=== PATIENT | female | born 1990 | race American Indian/Alaskan Native ===

== ENCOUNTER 2017-09-28 10:42 | Emergency (ER) | payer MEDICARE ==
[2017-09-28 11:11] LABS: Bacteria,Urine 1+ /HPF (Negative); Bilirubin,Urine NEG (Negative); Blood,Urine NEG (Negative); Color,Urine Yellow (Yellow); Mucus,Urine FEW /HPF; Protein,Urine <15 mg/dL mg/dL (Negative); Urobilinogen,Urine < 2.0 mg/dL (<2.0)
[2017-09-28 11:12] LABS: HCG Qualitative,Urine Negative (Negative)
--- NOTE | 2017-09-28 11:59 | Emergency Department Report ---
ED Abdominal Pain HPI - General Chief Complaint: Abdominal Pain Stated Complaint: PELVIC PAIN Time Seen by Provider: 09/28/17 11:50 Source: patient Mode of arrival: Ambulatory Limitations: No Limitations - History of Present Illness Initial Comments: Patient is a 27-year-old Female who is complaining of suprapubic and low back pain for the past 2-3 days. Patient's had some mild spotting as well. Patient last menstrual period was in June 2017. Patient took a test a week ago which was positive. Patient denies any fevers chills nausea vomiting or diarrhea at this time. - Related Data Previous Rx's Medication Instructions Recorded Last Taken Type Nitrofurantoin Monohyd/M-Cryst 100 mg PO BID #14 capsule 09/28/17 Unknown Rx [Macrobid 100 mg Capsule] Phenazopyridine [Pyridium] 100 mg PO TID 2 Days tab 09/28/17 Unknown Rx Allergies Allergy/AdvReac Type Severity Reaction Status Date / Time acetaminophen [From Percocet] Allergy Hives Verified 09/28/17 10:46 ketorolac [From Toradol] Allergy Hives Verified 09/28/17 10:46 levothyroxine Allergy Hives Verified 09/28/17 10:46 oxycodone [From Percocet] Allergy Hives Verified 09/28/17 10:46 tramadol Allergy Hives Verified 09/28/17 10:46 ED Review of Systems ROS: Stated complaint: PELVIC PAIN Other details as noted in HPI Comment: All other systems reviewed and negative ED Past Medical Hx - Past Medical History Hx Diabetes: Yes Hx GERD: Yes Hx Arthritis: Yes Hx Headaches / Migraines: Yes Additional medical history: sciatica, gastroparesis - Surgical History Hx Cholecystectomy: Yes Additional Surgical History: C/S - Social History Smoking Status: Current Some Day Smoker Substance Use Type: Alcohol - Medications Home Medications: Home Medications Medication Instructions Recorded Confirmed Last Taken Type Nitrofurantoin Monohyd/M-Cryst 100 mg PO BID #14 capsule 09/28/17 Unknown Rx [Macrobid 100 mg Capsule] Phenazopyridine [Pyridium] 100 mg PO TID 2 Days tab 09/28/17 Unknown Rx ED Physical Exam - General Limitations: No Limitations General appearance: alert, in no apparent distress - Head Head exam: Present: atraumatic, normocephalic - Eye Eye exam: Present: normal appearance - ENT ENT exam: Present: mucous membranes moist - Neck Neck exam: Present: normal inspection - Respiratory Respiratory exam: Present: normal lung sounds bilaterally. Absent: respiratory distress - Cardiovascular Cardiovascular Exam: Present: regular rate, normal rhythm. Absent: systolic murmur, diastolic murmur, rubs, gallop - GI/Abdominal GI/Abdominal exam: Present: soft, tenderness, normal bowel sounds. Absent: distended, guarding, rebound - Extremities Exam Extremities exam: Present: normal inspection - Back Exam Back exam: Present: normal inspection - Neurological Exam Neurological exam: Present: alert, oriented X3 - Psychiatric Psychiatric exam: Present: normal affect, normal mood - Skin Skin exam: Present: warm, dry, intact, normal color. Absent: rash ED Course Vital Signs 09/28/17 10:46 Temperature 98.2 F Pulse Rate 84 Respiratory 18 Rate Blood Pressure 116/71 O2 Sat by Pulse 100 Oximetry ED Medical Decision Making - Lab Data Lab Results 09/28/17 Range/Units Unknown Urine Color Yellow (Yellow) Urine Turbidity Slightly-cloudy (Clear) Urine pH 6.0 (5.0-7.0) Ur Specific [place] 1.023 (1.003-1.030) Urine Protein <15 mg/dl (Negative) mg/dL Urine Glucose (UA) Neg (Negative) mg/dL Urine Ketones Neg (Negative) mg/dL Urine Blood Neg (Negative) Urine Nitrite Neg (Negative) Urine Bilirubin Neg (Negative) Urine Urobilinogen < 2.0 (<2.0) mg/dL Ur Leukocyte Esterase Mod (Negative) Urine WBC (Auto) 7.0 H (0.0-6.0) /HPF Urine RBC (Auto) 7.0 (0.0-6.0) /HPF U Epithel Cells (Auto) 21.0 H (0-13.0) /HPF Urine Bacteria (Auto) 1+ (Negative) /HPF Urine Mucus Few /HPF Urine HCG, Qual Negative (Negative) - Medical Decision Making Patient test here in the emergency department was negative. Patient does have a history of irregular menses. Patient be treated for a urinary tract infection and have follow-up with [facility]. Patient has been instructed to take another test in approximately one week. The patient be discharged home. Critical care attestation.: If time is entered above; I have spent that time in minutes in the direct care of this critically ill patient, excluding procedure time. ED Disposition Clinical Impression: Acute cystitis Qualifiers: Hematuria presence: with hematuria Qualified Code(s): N30.01 - Acute cystitis with hematuria Disposition: TO HOME OR SELFCARE Is pt being admited?: No Does the pt Need Aspirin: No Condition: Stable Instructions: Abdominal Pain (ED), Urinary Tract Infection in Women (ED) Referrals: TRISTEN DIANE MD [Staff Physician] - 3-5 Days
[2017-09-28 12:22] VITALS: BP 118/74
== END 2017-09-28 12:21 | disposition home or self-care (01) ==
LOC: ED 10:42
DX: O23.41 Unspecified infection of urinary tract in pregnancy, first trimester (principal); O99.331 Smoking (tobacco) complicating pregnancy, first trimester; E11.9 Type 2 diabetes mellitus without complications; K21.9 Gastro-esophageal reflux disease without esophagitis; Z3A.08 8 weeks gestation of pregnancy; Z88.8 Allergy status to other drugs, medicaments and biological substances; Z90.49 Acquired absence of other specified parts of digestive tract
CPT/HCPCS: 81001; 81025; 99283

== ENCOUNTER 2017-10-27 17:32 | Emergency (ER) | payer MEDICARE ==
[2017-10-27 17:40] VITALS: BP 123/74
== END 2017-10-27 21:54 | disposition left against medical advice (07) ==
LOC: ED 17:32
DX: E11.9 Type 2 diabetes mellitus without complications (principal); Z53.21 Procedure and treatment not carried out due to patient leaving prior to being seen by health care provider
CPT/HCPCS: 82962

== ENCOUNTER 2018-04-25 17:25 | Emergency (ER) | payer MEDICARE ==
--- NOTE | 2018-04-25 17:36 | Emergency Department Report ---
Blank Doc - Documentation Documentation: This is 28-year-old female that presents with left foot and ankle pain. Stated she stepped into a suarez last night. Denies any other complaints or injuries. This initial assessment diagnostic orders/clinical plan/treatment(s) is/are subject to change based on patient's health status, clinical progression and re- assessment by fellow clinical providers in the ED. Further treatment and workup at subsequent clinical providers discretion. Patient/guardians urged not to elope from ED s their condition may be serious if not clinically assessed and managed. Initial orders include: 1-Patient sent to [facility] for further evaluation and treatment 2- xray
[2018-04-25 17:38] VITALS: BP 113/72
--- NOTE | 2018-04-25 19:49 | XRay Report ---
FINAL REPORT EXAM: XR ANKLE 3+V LT HISTORY: pain stepped in hole TECHNIQUE: AP, lateral, and oblique views of the left ankle PRIORS: None. FINDINGS: There is no evidence for acute fracture or dislocation. No soft tissue swelling or radiopaque foreig n bodies are seen. The ankle mortise is intact. Bony mineralization is normal and joint spaces are maintained. Early spurring off the posterior calcaneus is noted. IMPRESSION: No acute soft tissue or bony abnormality noted.
--- NOTE | 2018-04-25 19:49 | XRay Report ---
FINAL REPORT EXAM: XR FOOT 3+V LT HISTORY: pain.... stepped in hole TECHNIQUE: AP, lateral, and oblique views of the left foot PRIORS: None. FINDINGS: There is no evidence for acute fracture or dislocation. No soft tissue swelling or radiopaque foreig n bodies are seen. Bony mineralization is normal. Joint spaces are maintained. Early spurring off the posterior calcaneus is noted. IMPRESSION: No acute soft tissue or bony abnormality noted.
[2018-04-25] MEDS ORDERED: IBUPROFEN PO ONE (21:50)
[2018-04-25] MEDS ORDERED: TYLENOL PO ONE (21:50)
[2018-04-25] MEDS ORDERED: IBUPROFEN ONE (21:54)
[2018-04-25] MEDS ORDERED: TYLENOL ONE (21:54)
--- NOTE | 2018-04-25 21:58 | Emergency Department Report ---
ED Lower Extremity HPI - General Chief Complaint: Extremity Injury, Lower Stated Complaint: LEFT ANKLE/LEG PAIN Time Seen by Provider: 04/25/18 17:34 Source: patient Mode of arrival: Wheelchair Limitations: No Limitations - History of Present Illness Initial Comments: 28-year-old -Indian female presents to the emergency room for left ankle pain and swelling. Patient reports that she has stepped in a hole yesterday evening and is having pain and difficulty bearing weight. Patient reports that she did place ice on her injury. Patient reports she had not taken anything for pain. -: days(s) (1) Injury: Ankle: Left Type of Injury: inversion Place: home Severity scale (0 -10): 8 Improves With: nothing Worsens With: nothing Associated Symptoms: swelling, able to partially bear weight. denies: snap/pop sensation, numbness, tingling, unable to bear weight Treatments Prior to Arrival: cold therapy - Related Data Previous Rx's Medication Instructions Recorded Last Taken Type Nitrofurantoin Monohyd/M-Cryst 100 mg PO BID #14 capsule 09/28/17 Unknown Rx [Macrobid 100 mg Capsule] Phenazopyridine [Pyridium] 100 mg PO TID 2 Days tab 09/28/17 Unknown Rx Allergies Allergy/AdvReac Type Severity Reaction Status Date / Time acetaminophen [From Percocet] Allergy Hives Verified 09/28/17 10:46 hydromorphone [From Dilaudid] Allergy Hives Verified 10/27/17 17:38 ketorolac [From Toradol] Allergy Hives Verified 09/28/17 10:46 levothyroxine Allergy Hives Verified 09/28/17 10:46 oxycodone [From Percocet] Allergy Hives Verified 09/28/17 10:46 tramadol Allergy Hives Verified 09/28/17 10:46 ED Review of Systems ROS: Stated complaint: LEFT ANKLE/LEG PAIN Other details as noted in HPI Comment: All other systems reviewed and negative ED Past Medical Hx - Past Medical History Hx Diabetes: Yes Hx GERD: Yes Hx Arthritis: Yes Hx Headaches / Migraines: Yes Additional medical history: sciatica, gastroparesis - Surgical History Hx Cholecystectomy: Yes Additional Surgical History: C/S - Social History Smoking Status: Current Every Day Smoker Substance Use Type: None - Medications Home Medications: Home Medications Medication Instructions Recorded Confirmed Last Taken Type Nitrofurantoin Monohyd/M-Cryst 100 mg PO BID #14 capsule 09/28/17 Unknown Rx [Macrobid 100 mg Capsule] Phenazopyridine [Pyridium] 100 mg PO TID 2 Days tab 09/28/17 Unknown Rx ED Physical Exam - General Limitations: No Limitations General appearance: alert, in no apparent distress - Expanded Lower Extremity Exam Left Ankle exam: Present: full ROM, swelling (mild). Absent: laceration, ecchymosis, deformity, dislocation, erythema Foot/Toe exam: Present: full ROM. Absent: tenderness, swelling Neuro vascular tendon exam: Present: no vascular compromise - Neurological Exam Neurological exam: Present: alert, oriented X3 - Psychiatric Psychiatric exam: Present: normal affect, normal mood - Skin Skin exam: Present: warm, dry, intact, normal color. Absent: rash ED Course Vital Signs 04/25/18 04/25/18 17:36 23:39 Temperature 97.2 F L Pulse Rate 94 H 83 Respiratory 18 16 Rate Blood Pressure 113/72 O2 Sat by Pulse 100 100 Oximetry ED Lower Extremity MDM - Radiology Data Radiology results: report reviewed Patient: FRANCISCO WU MR#: [id number] : 1990 Acct:[id number] Age/Sex: 28 / F ADM Date: 04/25/18 Loc: ED Attending Dr: Ordering Physician: ANETA FLORES NP Date of Service: 04/25/18 Procedure(s): XR foot 3+V LT Accession Number(s): [id number] cc: ANETA FLORES NP Fluoro Time In Minutes: FINAL REPORT EXAM: XR FOOT 3+V LT HISTORY: pain.... stepped in hole TECHNIQUE: AP, lateral, and oblique views of the left foot PRIORS: None. FINDINGS: There is no evidence for acute fracture or dislocation. No soft tissue swelling or radiopaque foreign bodies are seen. Bony mineralization is normal. Joint spaces are maintained. Early spurring off the posterior calcaneus is noted. IMPRESSION: No acute soft tissue or bony abnormality noted. Transcribed By: [facility] Dictated By: MARIANN CLEMENTS MD Electronically Authenticated By: MARIANN CLEMENTS MD Signed Date/Time: 04/25/181948 DD/ 47 TD/TT: 04/25/181947 Ordering Physician: ANETA FLORES NP Date of Service: 04/25/18 Procedure(s): XR ankle 3+V LT Accession Number(s): [id number] cc: ANETA FLORES NP Fluoro Time In Minutes: FINAL REPORT EXAM: XR ANKLE 3+V LT HISTORY: pain stepped in hole TECHNIQUE: AP, lateral, and oblique views of the left ankle PRIORS: None. FINDINGS: There is no evidence for acute fracture or dislocation. No soft tissue swelling or radiopaque foreign bodies are seen. The ankle mortise is intact. Bony mineralization is normal and joint spaces are maintained. Early spurring off the posterior calcaneus is noted. IMPRESSION: No acute soft tissue or bony abnormality noted. Transcribed By: [facility] Dictated By: MARIANN CLEMENTS MD Electronically Authenticated By: MARIANN CLEMENTS MD Signed Date/Time: 04/25/181948 DD/ 48 TD/TT: 04/25/181948 - Medical Decision Making 28-year-old -Indian female presents to the emergency room reports left ankle pain after stepping in a hole yesterday. Critical care attestation.: If time is entered above; I have spent that time in minutes in the direct care of this critically ill patient, excluding procedure time. ED Disposition Clinical Impression: Left ankle injury Qualifiers: Encounter type: initial encounter Qualified Code(s): S99.912A - Unspecified injury of left ankle, initial encounter Left ankle sprain Qualifiers: Encounter type: initial encounter Involved ligament of ankle: unspecified ligament Qualified Code(s): S93.402A - Sprain of unspecified ligament of left ankle, initial encounter Disposition: DC-01 TO HOME OR SELFCARE Is pt being admited?: No Does the pt Need Aspirin: No Condition: Stable Instructions: Arthralgia (ED) Additional Instructions: Follow-up with orthopedic if her ankle does not improve or gets worse. Take pain medication that you are able to without any allergic reaction. Use crutches to ambulate. Elevate ankle to help with swelling. Referrals: SUNIL BONNER MD [Staff Physician] - 3-5 Days Forms: Work/School Release Form(ED)
== END 2018-04-25 22:25 | disposition home or self-care (01) ==
LOC: ED 17:25
DX: S93.402A Sprain of unspecified ligament of left ankle, initial encounter (principal); E11.9 Type 2 diabetes mellitus without complications; K21.9 Gastro-esophageal reflux disease without esophagitis; M19.90 Unspecified osteoarthritis, unspecified site; F17.200 Nicotine dependence, unspecified, uncomplicated; Z88.5 Allergy status to narcotic agent; Z88.8 Allergy status to other drugs, medicaments and biological substances; Z88.6 Allergy status to analgesic agent; X50.9XXA Other and unspecified overexertion or strenuous movements or postures, initial encounter; Y93.89 Activity, other specified; Y92.89 Other specified places as the place of occurrence of the external cause; Y99.8 Other external cause status

== ENCOUNTER 2018-07-17 13:09 | Emergency (ER) | payer MEDICARE ==
[2018-07-17] MEDS ORDERED: MORPHINE IV ONE ×2 (14:04→16:59)
[2018-07-17] MEDS ORDERED: VALIUM IV ONE (14:05)
[2018-07-17] MEDS ORDERED: DECADRON IV ONE (14:06)
[2018-07-17 14:50] LABS: Basophils % (Auto) 0.3 % (0.0-1.8); Eosinophils # (Auto) 0.1 K/mm3 (0.0-0.4); Eosinophils % (Auto) 1.2 % (0.0-4.3); Hemoglobin 11.3 gm/dl (10.1-14.3); Lymphocytes # (Auto) 2.3 K/mm3 (1.2-5.4); Lymphocytes % (Auto) 25.4 % (13.4-35.0); Monocytes # (Auto) 0.5 K/mm3 (0.0-0.8); Monocytes % (Auto) 5.9 % (0.0-7.3)
[2018-07-17 15:02] VITALS: BP 112/55
[2018-07-17 15:06] LABS: BUN/Creatinine Ratio 11; Blood Urea Nitrogen 9 mg/dL (7-17); Calcium 8.5 mg/dL (8.4-10.2); Hematocrit 33.6 % (30.3-42.9); Hemolysis Index 2; Mean Corpuscular HGB Conc 34 % (30-34); Mean Corpuscular Volume 85 fl (79-97); Platelet Count 352 K/mm3 (140-440); Red Blood Count 3.93 M/mm3 (3.65-5.03); Red Cell Distribution Width 17.2 % (13.2-15.2)
--- NOTE | 2018-07-17 17:19 | Cat Scan Report ---
PROCEDURE: CT LUMBAR SPINE W CON TECHNIQUE: Computerized axial tomography of the lumbar spine was performed from T12 to the sacrum fo llowing the IV injection of iodinated nonionic contrast. CT DOSE LENGTH PRODUCT: 958.5 mGycm HISTORY: worsening lumbar spine pain COMPARISONS: None . FINDINGS: The vertebral body heights and alignment are maintained. There is limited evaluation of disc material . L1-2: No significant abnormality . L2-3: No significant abnormality . L3-4: No significant abnormality . L4-5: Limited evaluation of disc material. However there may be broad-based posterior disc bulge . L5-S1: Limited evaluation of disc material, however there may be broad-based posterior disc bulge/pro trusion . Abnormal enhancement: None . Other: None . IMPRESSION: Limited evaluation of disc material with this modality. There may be posterior disc bulges at L4-5 an d L5-S1. Further evaluation with MRI could be obtained as clinically indicated . This document is electronically signed by Margaret Gray MD., Jul 17 2018 05:17:50 PM ET
--- NOTE | 2018-07-17 17:52 | Emergency Department Report ---
ED Back Pain/Injury HPI - General Chief Complaint: Extremity Problem,Nontraumatic Stated Complaint: BACK PAIN Time Seen by Provider: 07/17/18 14:00 Source: patient, EMS Limitations: Physical Limitation - History of Present Illness Initial Comments: Patient is a 28-year-old Greek female who is complaining of pain in her lower back and states that she has been unable to walk this morning. Patient has a history of sciatica. Patient states that she has not had any falls or any trauma. She denies any heavy lifting. Patient denies any bowel or bladder dysfunction at this time. Patient says she woke at is worse and unable to walk as she has numbness to the bilateral feet. - Related Data Previous Rx's Medication Instructions Recorded Last Taken Type Nitrofurantoin Monohyd/M-Cryst 100 mg PO BID #14 capsule 09/28/17 Unknown Rx [Macrobid 100 mg Capsule] Phenazopyridine [Pyridium] 100 mg PO TID 2 Days tab 09/28/17 Unknown Rx HYDROcodone/APAP 10-325 [[place] 1 each PO Q6HR PRN #10 tablet 07/17/18 Unknown Rx 10/325] methOCARBAMOL [Robaxin TAB] 500 mg PO Q6H PRN #14 tablet 07/17/18 Unknown Rx Allergies Allergy/AdvReac Type Severity Reaction Status Date / Time acetaminophen [From Percocet] Allergy Hives Verified 07/17/18 13:58 hydromorphone [From Dilaudid] Allergy Hives Verified 07/17/18 13:58 ketorolac [From Toradol] Allergy Hives Verified 07/17/18 13:58 levothyroxine Allergy Hives Verified 07/17/18 13:58 oxycodone [From Percocet] Allergy Hives Verified 07/17/18 13:58 tramadol Allergy Hives Verified 07/17/18 13:58 ED Review of Systems ROS: Stated complaint: BACK PAIN Other details as noted in HPI Comment: All other systems reviewed and negative ED Past Medical Hx - Past Medical History Previous Medical History?: Yes Hx Diabetes: Yes Hx GERD: Yes Hx Arthritis: Yes Hx Headaches / Migraines: Yes Additional medical history: sciatica, gastroparesis - Surgical History Past Surgical History?: Yes Hx Cholecystectomy: Yes Additional Surgical History: C/S - Social History Smoking Status: Current Every Day Smoker - Medications Home Medications: Home Medications Medication Instructions Recorded Confirmed Last Taken Type Nitrofurantoin Monohyd/M-Cryst 100 mg PO BID #14 capsule 09/28/17 Unknown Rx [Macrobid 100 mg Capsule] Phenazopyridine [Pyridium] 100 mg PO TID 2 Days tab 09/28/17 Unknown Rx HYDROcodone/APAP 10-325 [[place] 1 each PO Q6HR PRN #10 tablet 07/17/18 Unknown Rx 10/325] methOCARBAMOL [Robaxin TAB] 500 mg PO Q6H PRN #14 tablet 07/17/18 Unknown Rx ED Physical Exam - General Limitations: Physical Limitation General appearance: alert, in no apparent distress - Head Head exam: Present: atraumatic, normocephalic - Eye Eye exam: Present: normal appearance - ENT ENT exam: Present: mucous membranes moist - Neck Neck exam: Present: normal inspection - Respiratory Respiratory exam: Present: normal lung sounds bilaterally. Absent: respiratory distress, wheezes, rales, rhonchi - Cardiovascular Cardiovascular Exam: Present: regular rate, normal rhythm. Absent: systolic murmur, diastolic murmur, rubs, gallop - GI/Abdominal GI/Abdominal exam: Present: soft, normal bowel sounds. Absent: distended, tende rness, guarding, rebound - Extremities Exam Extremities exam: Present: normal inspection - Back Exam Back exam: Present: normal inspection - Neurological Exam Neurological exam: Present: alert, oriented X3, reflexes normal, other (patient states that she is unable to lift either leg off of the bed however when I lift her leg myself at the level of the thigh patient is able to keep her feet off the bed and keep her knees completely straight with good muscle tone) - Psychiatric Psychiatric exam: Present: normal affect, normal mood - Skin Skin exam: Present: warm, dry, intact, normal color. Absent: rash ED Course Vital Signs 07/17/18 07/17/18 07/17/18 13:54 14:55 17:39 Temperature 97.8 F 98.1 F Pulse Rate 81 80 Respiratory 16 16 16 Rate Blood Pressure 113/62 Blood Pressure 112/55 [Right] O2 Sat by Pulse 99 98 Oximetry ED Medical Decision Making - Lab Data Result diagrams: 07/17/18 14:34 07/17/18 14:34 - Radiology Data Radiology results: report reviewed [facility] [address] [place] [address] Cat Scan Report Signed Patient: FRANCISCO WU MR#: [id number] : 1990 Acct:[id number] Age/Sex: 28 / F ADM Date: 07/17/18 Loc: ED Att ending Dr: Ordering Physician: GINNY OHARA MD Date of Service: 07/17/18 Procedure(s): CT lumbar spine w con Accession Number(s): [id number] cc: GINNY OHARA MD PROCEDURE: CT LUMBAR SPINE W CON TECHNIQUE: Computerized axial tomography of the lumbar spine was performed from T12 to the sacrum following the IV injection of iodinated nonionic contrast. CT DOSE LENGTH PRODUCT: 958.5 mGycm HISTORY: worsening lumbar spine pain COMPARISONS: None . FINDINGS: The vertebral body heights and alignment are maintained. There is limited evaluation of disc material. L1-2: No significant abnormality . L2-3: No significant abnormality . L3-4: No significant abnormality . L4-5: Limited evaluation of dis c material. However there may be broad-based posterior disc bulge . L5-S1: Limited evaluation of disc material, however there may be broad-based posterior disc bulge/protrusion . Abnormal enhancement: None . Other: None . IMPRESSION: Limited evaluation of disc material with this modality. There may be posterior disc bulges at L4-5 and L5-S1. Further evaluation with MRI could be obtained as clinically indicated . This document is electronically signed by Margaret Gray MD., Jul 17 2018 05:17:50 PM ET Transcribed By: [facility] Dictated By: MARGARET GRAY M.D. Electronically Authenticated By: MARGARET GRAY M.D. Signed Date/Time: 07/17/18 1719 DD/ 46 TD/TT: 07/17/181646 - Medical Decision Making Patient states that she has no sensation to the bilateral lower extremities and no ability to move. Patient was able to keep her legs lifted and the air when I lift her legs by the thigh bilaterally. Patient also was able to support her own weight while going to the bathroom and was able to move off the stretcher to the CT scanner. Patient's pain will be addressed and the patient be referred to orthopedics. Critical care attestation.: If time is entered above; I have spent that time in minutes in the direct care o f this critically ill patient, excluding procedure time. ED Disposition Clinical Impression: Lumbar radiculopathy Disposition: DC-01 TO HOME OR SELFCARE Is pt being admited?: No Does the pt Need Aspirin: No Condition: Stable Referrals: SUNIL BONNER MD [Staff Physician] - 3-5 Days Time of Disposition: 18:14
[2018-07-17 18:19] LABS: Bacteria,Urine 1+ /HPF (Negative); Bilirubin,Urine NEG (Negative); Blood,Urine NEG (Negative); Color,Urine Yellow (Yellow); Mucus,Urine FEW /HPF; Protein,Urine <15 mg/dL mg/dL (Negative); Urobilinogen,Urine < 2.0 mg/dL (<2.0)
== END 2018-07-17 18:46 | disposition home or self-care (01) ==
LOC: ED 13:09
DX: M54.16 Radiculopathy, lumbar region (principal); E11.9 Type 2 diabetes mellitus without complications; K21.9 Gastro-esophageal reflux disease without esophagitis; M19.90 Unspecified osteoarthritis, unspecified site; G43.909 Migraine, unspecified, not intractable, without status migrainosus; F17.200 Nicotine dependence, unspecified, uncomplicated; Z90.49 Acquired absence of other specified parts of digestive tract; Z88.6 Allergy status to analgesic agent; Z88.1 Allergy status to other antibiotic agents; Z88.8 Allergy status to other drugs, medicaments and biological substances
CPT/HCPCS: 36415; 72132; 80048; 81001; 84703; 85025; 96374; 96375; 96376; 99284; J1100; J2270; J3360; Q9967

== ENCOUNTER 2018-11-02 13:07 | Emergency (ER) | payer MEDICARE ==
--- NOTE | 2018-11-02 13:19 | Emergency Department Report ---
Blank Doc - Documentation Documentation: This is a 28-year-old female that presents with URI symptoms and sore throat. Also has fever, chills, body aches, and nausea. This initial assessment/diagnostic orders/clinical plan/treatment(s) is/are subject to change based on patient's health status, clinical progression and re- assessment by fellow clinical providers in the ED. Further treatment and workup at subsequent clinical providers discretion. Patient/guardians urged not to elope from the ED as their condition may be serious if not clinically assessed and managed. Initial orders include: 1- Patient sent to [facility] for further evaluation and treatment 2- labs 3- strep swab 4- CXR 5- motrin-RN to repeat vitals
[2018-11-02] MEDS ORDERED: IBUPROFEN PO ONE (13:20)
[2018-11-02 13:23] VITALS: BP 119/63
--- NOTE | 2018-11-02 13:45 | Emergency Department Report ---
Minor Respiratory - HPI Chief Complaint: Upper Respiratory Infection Stated Complaint: CHEST PAIN/DIZZY/WEAK/SORE THROAT Time Seen by Provider: 11/02/18 13:18 Duration: 3 Days Pain Location: Other Severity: mild Minor Respiratory: Yes Able to Tolerate Fluids, Yes Fever, No Rhinorrhea, No Sore Throat, No Ear Pain, No Cough, No Sick Contacts, No Hemoptysis, No Chest Pain, No Shortness of Breath Other History: 28 YO AA FEMALE WHO COMES IN WITH MANY NON SPECIFIC COMPLAINTS - FATIGUE AND FEELS ILL. FEVER IN TRIAGE NOTED. REPORTS COUGH AND HEADACHE. DENIES DYSURIA OR ABD PAIN. AMBULATORY AND NON TOXIC ON EXAM. ED Review of Systems ROS: Stated complaint: CHEST PAIN/DIZZY/WEAK/SORE THROAT Other details as noted in HPI Comment: All other systems reviewed and negative ED Past Medical Hx - Past Medical History Previous Medical History?: Yes Hx Diabetes: Yes (diet controlled) Hx GERD: Yes Hx Arthritis: Yes Hx Headaches / Migraines: Yes Additional medical history: sciatica, gastroparesis - Surgical History Past Surgical History?: Yes Hx Cholecystectomy: Yes Additional Surgical History: C section - Social History Smoking Status: Current Every Day Smoker Substance Use Type: Alcohol, Marijuana - Medications Home Medications: Home Medications Medication Instructions Recorded Confirmed Last Taken Type Sulfamethoxazole/Trimethoprim 1 each PO BID #10 tablet 11/02/18 Unknown Rx [Bactrim DS TAB] Minor Respiratory Exam - Exam General: Vital signs noted. No distress. Alert and acting appropriately. HEENT: Yes Moist Mucous Membranes, No Pharyngeal Erythema, No Pharyngeal Exudates, No Rhinorrhea Ear: Neither TM Bulge, Neither TM Erythema, Neither EAC Pain, Neither EAC Discharge Neck: Yes Supple, No Adenopathy Lungs: Yes Good Air Exchange, No Wheezes, No Ronchi Heart: Yes Regular, No Murmur Abdomen: No Tenderness Skin: No Rash Neurologic: Alert and oriented, no deficits. Musculoskeletal: Unremarkable. ED Course Vital Signs 11/02/18 11/02/18 13:21 13:31 Temperature 100.8 F H Pulse Rate 101 H Respiratory 18 18 Rate Blood Pressure 119/63 O2 Sat by Pulse 100 Oximetry ED Medical Decision Making - Lab Data Result diagrams: 11/02/18 13:49 11/02/18 13:49 - Radiology Data Radiology results: report reviewed, image reviewed - Medical Decision Making Labs 11/02/18 11/02/18 11/02/18 13:49 13:49 13:49 WBC 7.1 RBC 4.03 Hgb 10.7 Hct 33.4 MCV 83 MCH 27 L MCHC 32 RDW 18.0 H Plt Count 345 Lymph % (Auto) Balloon Artist Rich % (Auto) Balloon Artist Eos % (Auto) Balloon Artist Baso % (Auto) Balloon Artist Lymph # Balloon Artist Rich # Balloon Artist Eos # Balloon Artist Baso # Balloon Artist Seg Neutrophils % Balloon Artist Seg Neutrophils # Balloon Artist VBG pH 7.339 Sodium 138 Potassium 3.7 Chloride 101.7 Carbon Dioxide 25 Anion Gap 15 BUN 6 L Creatinine 1.0 Estimated GFR > 60 BUN/Creatinine Ratio 6 Glucose 94 Calcium 8.3 L Urine Color Urine Turbidity Urine pH Ur Specific [place] Urine Protein Urine Glucose (UA) Urine Ketones Urine Blood Urine Nitrite Urine Bilirubin Urine Urobilinogen Ur Leukocyte Esterase Urine WBC (Auto) Urine RBC (Auto) U Epithel Cells (Auto) Urine Mucus Urine HCG, Qual Group A Strep Rapid 11/02/18 11/02/18 14:11 Unknown WBC RBC Hgb Hct MCV MCH MCHC RDW Plt Count Lymph % (Auto) Rich % (Auto) Eos % (Auto) Baso % (Auto) Lymph # Rich # Eos # Baso # Seg Neutrophils % Seg Neutrophils # VBG pH Sodium Potassium Chloride Carbon Dioxide Anion Gap BUN Creatinine Estimated GFR BUN/Creatinine Ratio Glucose Calcium Urine Color Yellow Urine Turbidity Cloudy Urine pH 6.0 Ur Specific [place] 1.021 Urine Protein <15 mg/dl Urine Glucose (UA) Neg Urine Ketones Neg Urine Blood Neg Urine Nitrite Neg Urine Bilirubin Neg Urine Urobilinogen < 2.0 Ur Leukocyte Esterase Lg Urine WBC (Auto) 13.0 H Urine RBC (Auto) 9.0 U Epithel Cells (Auto) 30.0 H Urine Mucus 2+ Urine HCG, Qual Negative Group A Strep Rapid Negative Vital Signs 11/02/18 11/02/18 13:21 13:31 Temperature 100.8 F H Pulse Rate 101 H Respiratory 18 18 Rate Blood Pressure 119/63 O2 Sat by Pulse 100 Oximetry LABS NOTED UA NOTED STREP NEG XRAY NOTED MEDICATED WITH ROCEPHIN IM MEDICATED FOR FEVER SEE ALLERGIES PT DC HOME WITH DC PLAN OF CARE AND FOLLOW UP WITH PCP REFERRAL BELOW - Differential Diagnosis UTI/ URTI/STREP THROAT Critical care attestation.: If time is entered above; I have spent that time in minutes in the direct care of this critically ill patient, excluding procedure time. ED Disposition Clinical Impression: UTI (urinary tract infection), Fever Disposition: - TO HOME OR SELFCARE Is pt being admited?: No Does the pt Need Aspirin: No Condition: Stable Instructions: Urinary Tract Infection in Women (ED) Additional Instructions: HYDRATE WELL WITH WATER MOTRIN OR TYLENOL FOR PAIN OR FEVER MEDS ORDERED TODAY DIET AND ACTIVITY TOLERATED FOLLOW UP PCP TO BE SURE YOU ARE GETTING BETTER REFERRAL BELOW Prescriptions: Sulfamethoxazole/Trimethoprim [Bactrim DS TAB] 1 each PO BID #10 tablet Referrals: [facility] [Outside] - 3-5 Days ANDERSON CHRISTIANSON MD [Staff Physician] - 3-5 Days Time of Disposition: 15:34
[2018-11-02 14:25] LABS: BUN/Creatinine Ratio 6; Blood Urea Nitrogen 6 mg/dL (7-17); Calcium 8.3 mg/dL (8.4-10.2); Hemolysis Index 0
[2018-11-02 14:27] LABS: Hematocrit 33.4 % (30.3-42.9); Hemoglobin 10.7 gm/dl (10.1-14.3); Mean Corpuscular HGB Conc 32 % (30-34); Mean Corpuscular Volume 83 fl (79-97); Platelet Count 345 K/mm3 (140-440); Red Blood Count 4.03 M/mm3 (3.65-5.03)
[2018-11-02 14:38] LABS: Bilirubin,Urine NEG (Negative); Blood,Urine NEG (Negative); Color,Urine Yellow (Yellow); Mucus,Urine 2+ /HPF; Protein,Urine <15 mg/dL mg/dL (Negative); Urobilinogen,Urine < 2.0 mg/dL (<2.0)
[2018-11-02 14:40] LABS: HCG Qualitative,Urine Negative (Negative)
--- NOTE | 2018-11-02 15:25 | XRay Report ---
CHEST 2 VIEWS INDICATION: cough. COMPARISON: None FINDINGS: Support devices: None. Heart: Within normal limits. Lungs/pleura: No acute air space or interstitial disease. No pneumothorax. Additional findings: None. IMPRESSION: No acute findings. Signer Name: Solomon Sigala Jr, MD Signed: 11/02/2018 3:20 PM Workstation Name: [id number]
[2018-11-02] MEDS ORDERED: NACL 0.9% 1000 ML 1,000 ML IV ONE (15:28)
[2018-11-02] MEDS ORDERED: ROCEPHIN/NS 1 GM/50 ML 1 GM/50 ML BAG IV ONE (15:28)
[2018-11-02] MEDS ORDERED: ROCEPHIN IM ONE (15:32)
[2018-11-02] MEDS ORDERED: XYLOCAINE 1% MPF 5 mL INFILTRATI ONE (15:32)
[2018-11-02 17:27] LABS: Basophils % (Manual) 0 % (0.0-1.8); Eosinophils % (Manual) 0 % (0.0-4.3); RBC Morphology Normal; Total Cells Counted 100
== END 2018-11-02 16:28 | disposition home or self-care (01) ==
LOC: ED 13:07
DX: N39.0 Urinary tract infection, site not specified (principal); E11.9 Type 2 diabetes mellitus without complications; K21.9 Gastro-esophageal reflux disease without esophagitis; M19.90 Unspecified osteoarthritis, unspecified site; G43.909 Migraine, unspecified, not intractable, without status migrainosus; F17.200 Nicotine dependence, unspecified, uncomplicated; E11.43 Type 2 diabetes mellitus with diabetic autonomic (poly)neuropathy; K31.84 Gastroparesis; F12.10 Cannabis abuse, uncomplicated; Z90.49 Acquired absence of other specified parts of digestive tract; Z98.890 Other specified postprocedural states; Z88.6 Allergy status to analgesic agent; Z88.1 Allergy status to other antibiotic agents
CPT/HCPCS: 36415; 71046; 80048; 81001; 81025; 82805; 85007; 85025; 87086; 87116; 87430; 96372; 99284; J0696

== ENCOUNTER 2019-10-13 09:38 | Emergency (ER) | payer MEDICARE ==
[2019-10-13 09:59] VITALS: BP 128/82
--- NOTE | 2019-10-13 10:54 | XRay Report ---
CHEST 2 VIEWS INDICATION / CLINICAL INFORMATION: Chest Pain. COMPARISON: 11/02/2018 FINDINGS: SUPPORT DEVICES: None. HEART / MEDIASTINUM: No significant abnormality. LUNGS / PLEURA: No significant pulmonary or pleural abnormality. No pneumothorax. ADDITIONAL FINDINGS: No significant additional findings. IMPRESSION: 1. No acute findings. Signer Name: Hayes Parikh MD Signed: 10/13/2019 10:49 AM Workstation Name: [id number]
--- NOTE | 2019-10-13 11:35 | Emergency Department Report ---
ED Chest Pain HPI - General Chief Complaint: Chest Pain Stated Complaint: CP/BACK PAIN/SHOOTING PAIN DOWN ARM Time Seen by Provider: 10/13/19 11:32 Source: patient Mode of arrival: Ambulatory Limitations: No Limitations - History of Present Illness Initial Comments: 29-year-old -M[place] female patient presents with complaints of substernal chest pain x 6 days. Patient states her pain began after she was seen in the hospital 1 week ago for an allergic reaction. Patient states her throat was closing up and she was administered a steroid and Benadryl and her symptoms resolved. She denies being intubated. She rates her current pain as a 9/10 in severity and states it radiates to her back. Patient describes the pain as a squeezing tightness. She is a smoker and denies any history of COPD or asthma, ND/CVA, DVT/PE, recent long travel, hemoptysis, cough, or leg pain/swelling. Patient also states she is not currently on any hormones and denies history of cancer. Her pain worsens with deep inspiration and she states she had one episode of shortness of breath earlier today. Patient also reports that she was seen at [facility] 2 days ago and had a CT of her chest performed that was negative for PE or other abnormal findings. She also denies any fever/chills/sweats, abdominal pain, or known sick contacts. S he admits to history of GERD - Related Data Previous Rx's Medication Instructions Recorded Last Taken Type Sulfamethoxazole/Trimethoprim 1 each PO BID #10 tablet 11/02/18 Unknown Rx [Bactrim DS TAB] Prednisone [predniSONE 10 mg 10 mg PO .TAPER #1 tab.ds.pk 10/13/19 Unknown Rx (6-Day Pack, 21 Tabs)] methOCARBAMOL [Robaxin TAB] 1,500 mg PO Q8H PRN #30 tablet 10/13/19 Unknown Rx Allergies Allergy/AdvReac Type Severity Reaction Status Date / Time acetaminophen [From Percocet] Allergy Hives Verified 07/17/18 13:58 hydromorphone [From Dilaudid] Allergy Hives Verified 07/17/18 13:58 ketorolac [From Toradol] Allergy Hives Verified 07/17/18 13:58 levothyroxine Allergy Hives Verified 07/17/18 13:58 oxycodone [From Percocet] Allergy Hives Verified 07/17/18 13:58 tramadol Allergy Hives Verified 07/17/18 13:58 Heart Score - HEART Score History: Slightly suspicious EKG: Normal Age: < 45 Risk factors: 1-2 risk factors Troponin: < normal limit HEART Score: 1 - Critical Actions Critical Actions: 0-3 pts:0.9-1.7%risk of adverse cardiac event.Candidate for discharge ED Review of Systems ROS: Stated complaint: CP/BACK PAIN/SHOOTING PAIN DOWN ARM Other details as noted in HPI Constitutional: denies: chills, diaphoresis, fever, malaise, weakness Respiratory: shortness of breath. denies: cough Cardiovascular: chest pain. denies: palpitations, dyspnea on exertion, edema Gastrointestinal: denies: abdominal pain, nausea, vomiting, diarrhea Genitourinary: denies: urgency, dysuria Musculoskeletal: denies: back pain Skin: denies: rash, lesions Neurological: denies: headache, weakness, numbness, paresthesias ED Past Medical Hx - Past Medical History Previous Medical History?: Yes Hx Diabetes: Yes (states no longer diabetic) Hx GERD: Yes Hx Arthritis: Yes Hx Headaches / Migraines: Yes Additional medical history: sciatica, gastroparesis - Surgical History Past Surgical History?: Yes Hx Cholecystectomy: Yes Additional Surgical History: C section - Social History Smoking Status: Current Every Day Smoker Substance Use Type: None - Medications Home Medications: Home Medications Medication Instructions Recorded Confirmed Last Taken Type Sulfamethoxazole/Trimethoprim 1 each PO BID #10 tablet 11/02/18 Unknown Rx [Bactrim DS TAB] Prednisone [predniSONE 10 mg 10 mg PO .TAPER #1 tab.ds.pk 10/13/19 Unknown Rx (6-Day Pack, 21 Tabs)] methOCARBAMOL [Robaxin TAB] 1,500 mg PO Q8H PRN #30 tablet 10/13/19 Unknown Rx ED Physical Exam - General Limitations: No Limitations General appearance: alert, in no apparent distress, obese - Head Head exam: Present: atraumatic, normocephalic - Eye Eye exam: Present: normal appearance - ENT ENT exam: Present: mucous membranes moist - Neck Neck exam: Present: normal inspection, full ROM - Respiratory Respiratory exam: Present: normal lung sounds bilaterally, chest wall tenderness (Bilateral parasternal). Absent: respiratory distress, wheezes, rales - Cardiovascular Cardiovascular Exam: Present: regular rate, normal rhythm. Absent: systolic murmur, diastolic murmur, rubs, gallop - GI/Abdominal GI/Abdominal exam: Present: soft, normal bowel sounds. Absent: distended, tenderness, guarding, rebound, rigid - Extremities Exam Extremities exam: Present: normal inspection. Absent: calf tenderness (No tenderness or swelling noted to lower extremities bilaterally) - Back Exam Back exam: Present: normal inspection, full ROM. Absent: CVA tenderness (R), CVA tenderness (L), paraspinal tenderness, vertebral tenderness - Neurological Exam Neurological exam: Present: alert, oriented X3, normal gait - Psychiatric Psychiatric exam: Present: normal affect, normal mood - Skin Skin exam: Present: warm, dry, intact, normal color. Absent: rash, cyanosis, diaphoretic ED Course Vital Signs 10/13/19 10/13/19 10/13/19 09:53 13:42 14:12 Temperature 98.0 F Pulse Rate 91 H Respiratory 18 18 18 Rate Blood Pressure 128/82 O2 Sat by Pulse 100 Oximetry ED Medical Decision Making - Lab Data Result diagrams: 10/13/19 11:43 10/13/19 11:43 Lab Results 10/13/19 10/13/19 Range/Units 11:43 11:43 WBC 9.2 (4.5-11.0) K/mm3 RBC 3.93 (3.65-5.03) M/mm3 Hgb 10.4 (10.1-14.3) gm/dl Hct 32.0 (30.3-42.9) % MCV 82 (79-97) fl MCH 27 L (28-32) pg MCHC 33 (30-34) % RDW 18.2 H (13.2-15.2) % Plt Count 416 (140-440) K/mm3 Lymph % (Auto) 21.1 (13.4-35.0) % Graham % (Auto) 3.6 (0.0-7.3) % Eos % (Auto) 1.0 (0.0-4.3) % Baso % (Auto) 0.2 (0.0-1.8) % Lymph # 1.9 (1.2-5.4) K/mm3 Graham # 0.3 (0.0-0.8) K/mm3 Eos # 0.1 (0.0-0.4) K/mm3 Baso # 0.0 (0.0-0.1) K/mm3 Seg Neutrophils % 74.1 H (40.0-70.0) % Seg Neutrophils # 6.8 (1.8-7.7) K/mm3 Sodium 137 (137-145) mmol/L Potassium 4.1 (3.6-5.0) mmol/L Chloride 103.6 (98-107) mmol/L Carbon Dioxide 21 L (22-30) mmol/L Anion Gap 17 mmol/L BUN 11 (7-17) mg/dL Creatinine 0.8 (0.6-1.2) mg/dL Estimated GFR > 60 ml/min BUN/Creatinine Ratio 14 % Glucose 203 H (65-100) mg/dL Calcium 8.9 (8.4-10.2) mg/dL Total Bilirubin < 0.20 (0.1-1.2) mg/dL AST 13 (5-40) units/L ALT 17 (7-56) units/L Alkaline Phosphatase 88 (35-129) units/L Troponin T < 0.010 (0.00-0.029) ng/mL Total Protein 7.7 (6.3-8.2) g/dL Albumin 3.7 L (3.9-5) g/dL Albumin/Globulin Ratio 0.9 % - EKG Data EKG shows normal: sinus rhythm Rate: normal - EKG Data When compared to previous EKG there are: previous EKG unavailable - Radiology Data Radiology results: report reviewed CHEST 2 VIEWS INDICATION / CLINICAL INFORMATION: Chest Pain. COMPARISON: 11/02/2018 FINDINGS: SUPPORT DEVICES: None. HEART / MEDIASTINUM: No significant abnormality. LUNGS / PLEURA: No significant pulmonary or pleural abnormality. No pneumothorax. ADDITIONAL FINDINGS: No significant additional findings. IMPRESSION: 1. No acute findings. - Medical Decision Making Patient here for chest pain for the past week. Please see HPI. Patient does report she has been seen 3 other times in the past week for this chest pain at other hospitals and states she had a negative CT of the chest with contrast performed 2 days ago at [facility]. Patient was ambulated with pulse oximetry and her oxygenation stayed at 98 to 99% with ambulation. Her vitals are normal she is afebrile. CBC and CMP are normal. No abnormalities are noted on chest x-ray. Her EKG is normal. PERC score = 0 and heart score = 1. Patient did have palpable chest pain on exam, suspect costochondritis. Patient given steroid and Toradol. Patient states pain has significantly improved and rates her pain now as a 1/10 in severity. Will treat for costochondritis and recommend follow-up with cardiology. Patient's vitals are normal, she is well- appearing, and stable for discharge home. Strict return precautions were discussed in detail with patient who verbalized understanding Critical care attestation.: If time is entered above; I have spent that time in minutes in the direct care of this critically ill patient, excluding procedure time. ED Disposition Clinical Impression: Costochondritis Chest pain Qualifiers: Chest pain type: other chest pain Qualified Code(s): R07.89 - Other chest pain Disposition: - TO HOME OR SELFCARE Is pt being admited?: No Condition: Stable Instructions: Chest Pain (ED), Costochondritis (ED) Prescriptions: Prednisone [predniSONE 10 mg (6-Day Pack, 21 Tabs)] 10 mg PO .TAPER #1 tab.ds.pk methOCARBAMOL [Robaxin TAB] 1,500 mg PO Q8H PRN #30 tablet PRN Reason: muscle tightness Referrals: LUIS MANUEL ANDERSEN MD [Staff Physician] - 2-3 Days ED Shortness of Breath MDM - MDM DVT Risk Factors: denies: Cast, Recent Orthopedic Procedure, Cancer, Recent Surgery-Other, Bedridden, Paralysis, Prior DVT/PE, Leg Swelling - Wells Criteria Clinical Symptoms of DVT: (0) No No Alternative Diagnosis: (0) No Immobilization of Surgery in Previous 4 Weeks: (0) No Previous DVT/PE: (0) No Hemoptysis: (0) No Malignancy: (0) No
[2019-10-13 11:55] LABS: Basophils % (Auto) 0.2 % (0.0-1.8); Eosinophils # (Auto) 0.1 K/mm3 (0.0-0.4); Hemoglobin 10.4 gm/dl (10.1-14.3); Lymphocytes # (Auto) 1.9 K/mm3 (1.2-5.4); Lymphocytes % (Auto) 21.1 % (13.4-35.0); Mean Corpuscular HGB Conc 33 % (30-34); Mean Corpuscular Volume 82 fl (79-97); Monocytes # (Auto) 0.3 K/mm3 (0.0-0.8); Monocytes % (Auto) 3.6 % (0.0-7.3); Platelet Count 416 K/mm3 (140-440); Red Blood Count 3.93 M/mm3 (3.65-5.03); Red Cell Distribution Width 18.2 % (13.2-15.2)
[2019-10-13] MEDS ORDERED: diphenhydrAMINE 50 MG/ML VIAL IV ONE (12:09)
[2019-10-13] MEDS ORDERED: methylPREDNISolone Sod Succinate 125 MG/2 ML INJ IV ONE (12:09)
[2019-10-13 12:16] LABS: Alanine Aminotransferase 17 units/L (7-56); Albumin 3.7 g/dL (3.9-5); BUN/Creatinine Ratio 14; Blood Urea Nitrogen 11 mg/dL (7-17); Calcium 8.9 mg/dL (8.4-10.2); Hemolysis Index 14
[2019-10-13] MEDS ORDERED: diphenhydrAMINE 50 MG/ML VIAL ONE (13:05)
[2019-10-13] MEDS ORDERED: methylPREDNISolone Sod Succinate 125 MG/2 ML INJ ONE (13:05)
[2019-10-13] MEDS ORDERED: KETOROLAC 30 MG/1 ML INJ IV ONE (13:32)
== END 2019-10-13 14:28 | disposition home or self-care (01) ==
LOC: ED 09:38
DX: M94.0 Chondrocostal junction syndrome [Tietze] (principal); E11.9 Type 2 diabetes mellitus without complications; K21.9 Gastro-esophageal reflux disease without esophagitis; G43.909 Migraine, unspecified, not intractable, without status migrainosus; Z86.69 Personal history of other diseases of the nervous system and sense organs; F17.200 Nicotine dependence, unspecified, uncomplicated; Z90.49 Acquired absence of other specified parts of digestive tract; Z79.899 Other long term (current) drug therapy; Z88.6 Allergy status to analgesic agent; Z88.8 Allergy status to other drugs, medicaments and biological substances
CPT/HCPCS: 36415; 71046; 80053; 84484; 85025; 93005; 96374; 96375; 99284; J1200; J1885; J2930